=== PATIENT | male | born 1950 | race Caucasian/White ===

== ENCOUNTER 2020-02-09 05:08 | Emergency (ER) | payer OTHER ==
[~2020-02-09] VITALS: Ht 175.3 cm; Wt 56.7 kg
[2020-02-09] MEDS ORDERED: ASPI325 PO (05:14)
[2020-02-09] MEDS ORDERED: OMEP20ER PO (05:14)
[2020-02-09] MEDS ORDERED: Neurontin600 MG PO (05:15)
[2020-02-09] MEDS ORDERED: Tessalon200 MG (05:16)
[2020-02-09] MEDS ORDERED: ATOR20 PO (05:16)
[2020-02-09] MEDS ORDERED: Prinivil10 MG PO (05:16)
[2020-02-09 05:47] LABS: BASOPHILS ABSOLUTE AUTO 0.05 K/mm3 (0.00-0.23); BASOPHILS PERCENT AUTO 0 % (0-2); EOSINOPHILS ABSOLUTE AUTO 0.09 K/mm3 (0.00-0.68); EOSINOPHILS PERCENT AUTO 1 % (0-6); Hematocrit 44.6 % (37.0-53.0); Hemoglobin 14.6 g/dL (13.5-17.5); IMMATURE GRAN ABSOLUTE AUTO 0.09 K/mm3 (0.00-0.10); IMMATURE GRAN PERCENT AUTO 1 % (0-1); LYMPHOCYTES ABSOLUTE AUTO 1.46 K/mm3 (0.84-5.20); LYMPHOCYTES PERCENT AUTO 9 % (21-46); MONOCYTES ABSOLUTE AUTO 1.32 K/mm3 (0.16-1.47); MONOCYTES PERCENT AUTO 8 % (4-13); Mean Corpuscular HGB 29.7 pg (26.0-34.0); Mean Corpuscular HGB Conc 32.7 g/dL (31.5-36.5); Mean Corpuscular Volume 91 fL (80-100); Mean Platelet Volume 10.4 fL (9.1-12.4); NEUTROPHILS ABSOLUTE AUTO 13.94 K/mm3 (1.96-9.15); NEUTROPHILS PERCENT AUTO 82 % (41-73); Platelet Count 229 K/mm3 (150-400); RDW Coefficient Variation 14.6 % (11.7-14.2); RDW Standard Deviation 49.3 fL (35.1-46.3); Red Blood Cell Count 4.91 M/mm3 (4.30-5.90); White Blood Cell Count 16.95 K/mm3 (4.00-11.30)
[2020-02-09] MEDS ORDERED: AMOCLA875 PO (06:09)
[2020-02-09 06:15] LABS: Troponin I <0.015 ng/mL (0.000-0.040)
[2020-02-09 06:17] LABS: Alanine Aminotransfer (ALT/SGP 25 U/L (12-78); Albumin, Blood 3.7 g/dL (3.4-5.0); Alk Phos 97 U/L (50-136); Anion Gap 8 mmol/L (6-16); Aspartate Aminotrans (AST/SGOT 18 U/L (12-37); Bilirubin, Total 0.6 mg/dL (0.1-1.0); Blood Urea Nitrogen 26 mg/dL (8-24); Bun/Creatinine Ratio 25.7 (12.0-20.0); CO2, Blood 24 mmol/L (21-32); Calcium, Blood 9.7 mg/dL (8.5-10.1); Chloride, Blood 101 mmol/L (98-108); Creatinine, Blood 1.01 mg/dL (0.60-1.20); Globulin, Blood 3.7 g/dL (2.2-4.0); Glomerular Filtration Rate >60 (60-); Glucose, Blood 105 mg/dL (70-99); Potassium, Blood 4.2 mmol/L (3.5-5.5); Sodium, Blood 133 mmol/L (136-145); Total Protein, Blood 7.4 g/dL (6.4-8.2)
== END 2020-02-09 06:40 | disposition home or self-care (01) ==
LOC: ER 05:08
PROVIDERS: Emergency Medicine
DX: J18.9 Pneumonia, unspecified organism (principal); I10 Essential (primary) hypertension; Z79.899 Other long term (current) drug therapy; Z79.82 Long term (current) use of aspirin; F17.210 Nicotine dependence, cigarettes, uncomplicated
CPT/HCPCS: 71046; 80053; 83690; 84484; 85025; 93005; 93010; 96361; 96374; 96375; 99285-25; J2270; J2405; J7030

== ENCOUNTER 2020-08-18 10:39 | Inpatient (IN) | payer OTHER, MEDICARE ==
[~2020-08-18] VITALS: Ht 175.3 cm; Wt 52.2 kg
[~2020-08-18 10:39] MED LIST: AMOCLA875 PO; Tessalon200 MG
[2020-08-18 11:28] LABS: BASOPHILS ABSOLUTE AUTO 0.06 K/mm3 (0.00-0.23); BASOPHILS PERCENT AUTO 0 % (0-2); EOSINOPHILS PERCENT AUTO 0 % (0-6); Hematocrit 32.9 % (37.0-53.0); Hemoglobin 10.6 g/dL (13.5-17.5); IMMATURE GRAN ABSOLUTE AUTO 0.22 K/mm3 (0.00-0.10); IMMATURE GRAN PERCENT AUTO 1 % (0-1); LYMPHOCYTES ABSOLUTE AUTO 1.21 K/mm3 (0.84-5.20); LYMPHOCYTES PERCENT AUTO 6 % (21-46); MONOCYTES ABSOLUTE AUTO 1.22 K/mm3 (0.16-1.47); MONOCYTES PERCENT AUTO 6 % (4-13); Mean Corpuscular HGB 27.2 pg (26.0-34.0); Mean Corpuscular HGB Conc 32.2 g/dL (31.5-36.5); Mean Corpuscular Volume 85 fL (80-100); Mean Platelet Volume 8.8 fL (9.1-12.4); NEUTROPHILS ABSOLUTE AUTO 17.92 K/mm3 (1.96-9.15); NEUTROPHILS PERCENT AUTO 87 % (41-73); Platelet Count 468 K/mm3 (150-400); RDW Coefficient Variation 15.3 % (11.7-14.2); RDW Standard Deviation 46.6 fL (35.1-46.3); Red Blood Cell Count 3.89 M/mm3 (4.30-5.90); White Blood Cell Count 20.63 K/mm3 (4.00-11.30)
[2020-08-18 11:49] LABS: Alanine Aminotransfer (ALT/SGP 17 U/L (12-78); Albumin, Blood 1.9 g/dL (3.4-5.0); Albumin/Globulin Ratio 0.4 (0.8-1.8); Alk Phos 138 U/L (50-136); Anion Gap 7 mmol/L (6-16); Aspartate Aminotrans (AST/SGOT 13 U/L (12-37); Bilirubin, Total 0.4 mg/dL (0.1-1.0); Blood Urea Nitrogen 15 mg/dL (8-24); Bun/Creatinine Ratio 21.9 (12.0-20.0); CO2, Blood 28 mmol/L (21-32); Calcium, Blood 8.6 mg/dL (8.5-10.1); Chloride, Blood 95 mmol/L (98-108); Creatinine, Blood 0.68 mg/dL (0.60-1.20); Globulin, Blood 4.8 g/dL (2.2-4.0); Glomerular Filtration Rate >60 (60-); Glucose, Blood 125 mg/dL (70-99); Potassium, Blood 4.1 mmol/L (3.5-5.5); Sodium, Blood 130 mmol/L (136-145); Total Protein, Blood 6.7 g/dL (6.4-8.2); Troponin I <0.015 ng/mL (0.000-0.040)
[2020-08-18] MEDS ORDERED: ASPIR 8181 M1 PO (13:59)
[2020-08-18] MEDS ORDERED: OMEP20ER PO (14:01)
[2020-08-18] MEDS ORDERED: GABAPENTIN600 MG PO (14:03)
[2020-08-18] MEDS ORDERED: Prinivil10 MG PO (14:03)
[2020-08-18] MEDS ORDERED: ATOR40TA PO (14:04)
--- NOTE | 2020-08-18 16:29 | NUR ---
1550 RECEIVED PT TO RM 343 VIA W/C FROM ER. PT IS A&O, ABLE TO TX SELF TO BED. WEAK AND FRAIL LOOKING. ADMITTED FOR NECROTIZING PNM WITH SHARP PAIN TO RCW. DENIES SOB WITH ACTIVITY, JUST PAIN WITH COUGHING. PLACED ON 2L O2 VIA NC; NORMALLY ON RA. COARSE SOUNDING COUGH. PT INFORMED OF NEEDED SPUTUM CX. PT WITH MASS TO RLL; POSSIBLE PNM OR NEOPLASM. IVF'S AND ZOSYN GIVEN IN ER. NO ALLERGIES REPORTED. PT UP INDEPENDENTLY TO BTHRM AFTER ADMISSION. MEDICATED FOR SHARP PAIN TO R CHEST. PT ASSISTED WITH PHONE IN RM; CALLING. DENIED FURTHER NEEDS. CALL LT IN REACH. PULMONARY CONSULT CALLED IN ER.
[2020-08-19 05:04] LABS: BASOPHILS ABSOLUTE AUTO 0.05 K/mm3 (0.00-0.23); BASOPHILS PERCENT AUTO 0 % (0-2); EOSINOPHILS ABSOLUTE AUTO 0.04 K/mm3 (0.00-0.68); EOSINOPHILS PERCENT AUTO 0 % (0-6); Hematocrit 29.5 % (37.0-53.0); Hemoglobin 9.4 g/dL (13.5-17.5); IMMATURE GRAN ABSOLUTE AUTO 0.13 K/mm3 (0.00-0.10); IMMATURE GRAN PERCENT AUTO 1 % (0-1); LYMPHOCYTES ABSOLUTE AUTO 1.35 K/mm3 (0.84-5.20); LYMPHOCYTES PERCENT AUTO 7 % (21-46); MONOCYTES ABSOLUTE AUTO 1.31 K/mm3 (0.16-1.47); MONOCYTES PERCENT AUTO 7 % (4-13); Mean Corpuscular HGB 27.2 pg (26.0-34.0); Mean Corpuscular HGB Conc 31.9 g/dL (31.5-36.5); Mean Corpuscular Volume 86 fL (80-100); NEUTROPHILS ABSOLUTE AUTO 15.33 K/mm3 (1.96-9.15); NEUTROPHILS PERCENT AUTO 84 % (41-73); Platelet Count 409 K/mm3 (150-400); RDW Coefficient Variation 15.2 % (11.7-14.2); RDW Standard Deviation 47.4 fL (35.1-46.3); Red Blood Cell Count 3.45 M/mm3 (4.30-5.90); White Blood Cell Count 18.21 K/mm3 (4.00-11.30)
[2020-08-19 05:20] LABS: International Normalized Ratio 1.17; Prothrombin Time Results 12.4 Sec (9.7-11.5)
[2020-08-19 05:26] LABS: Alanine Aminotransfer (ALT/SGP 11 U/L (12-78); Albumin, Blood 1.6 g/dL (3.4-5.0); Albumin/Globulin Ratio 0.4 (0.8-1.8); Alk Phos 109 U/L (50-136); Anion Gap 7 mmol/L (6-16); Aspartate Aminotrans (AST/SGOT 10 U/L (12-37); Bilirubin, Total 0.5 mg/dL (0.1-1.0); Blood Urea Nitrogen 12 mg/dL (8-24); CO2, Blood 26 mmol/L (21-32); Chloride, Blood 100 mmol/L (98-108); Globulin, Blood 4.1 g/dL (2.2-4.0); Glomerular Filtration Rate >60 (60-); Glucose, Blood 89 mg/dL (70-99); Magnesium, Blood 1.6 mg/dL (1.6-2.4); Sodium, Blood 133 mmol/L (136-145); Total Protein, Blood 5.7 g/dL (6.4-8.2)
--- NOTE | 2020-08-19 06:21 | NUR ---
SHIFT SUMMARY PATIENT ALERT AND ORIENTED, ALTHOUGH OCCASIONALLY FORGETFUL AND IMPULSIVE. HE IS WEAK AND DUE TO HAVING SCD'S, IV TUBING, AND O2 TUBING, PATIENT'S BED ALARM HAS BEEN TURNED ON TO PREVENT FALLS. PATIENT MEDICATED ONCE PER EMAR FOR COUGH. HE WAS ABLE TO SLEEP WELL OVERNIGHT. IV PATENT AND INFUSING. BED IN LOWEST POSITION WITH WHEELS LOCKED AND ALARM ON. CALL LIGHT WITHIN REACH. REPORT GIVEN TO ONCOMING RN.
--- NOTE | 2020-08-19 17:38 | NUR ---
SHIFT SUMMARY PT AWAKE AT START OF SHIFT WATCHING TV. BED ALARM ON FOR SAFETY WITH SCD'S AND IV PUMP/LINES. PT FORGETFUL DURING THE NIGHT. PT REPORTED FEELING BETTER THIS AM THAN WHEN ADMITTED. DR NGO IN TO SEE PT THIS AM, EXPLAINING PLAN OF CARE. PT REPORTED PAIN TO RCW, REQUESTING PAIN MEDICATION, THOUGH PAIN MUCH IMPROVED FROM ADMISSION. IV'S SL, EXCEPT FOR SCHEDULED IV ABX. USES URINAL IN BED MOST OF THE TIME, UP TO BTHRM AT TIMES; SBA ONLY ONCE PT UP AND DISCONNECTED FROM LINES. PT HAS BEEN PLEASANT AND CO-OP. CALL LT IN REACH.
--- NOTE | 2020-08-20 04:32 | NUR ---
Patient rested well overnight after receiving phenergan with codiene for his hacking cough. It was productive of large amounts of thick white sputum and patient would be in considerable pain in the lower anterior ribs and area of manubrium when he would cough. SCD's were removed as patient is in and out of bed at night to bathroom and this increased his risk for injury. Lung sounds are coarse throughout (right greater than Left)
--- NOTE | 2020-08-20 11:14 | NUR ---
AND HAVE ROUNDED. HE WILL HAVE A REPEAT CXR AND LABS TOMORROW AM. HE IS UP WITH SBA TO THE BATHROOM. HE HAS BEEN MEDICATED WITH TRAMADOL FOR HIS RCW PAIN. HE CONTINUES TO HAVE A PRODUCTIVE COUGH OF WHITE SPUTUM. O2 IS AT 1.5L.
--- NOTE | 2020-08-20 13:44 | NUR ---
HE HAD A SMALL LEAK AT HIS LAC IV SITE. IT WAS REMOVED AND A NEW IV PLACED FOR FUTURE ANTIBIOTIC DOSES. HE SAID THE TRAMADOL THIS MORNING DECREASED HIS PAIN SOME. VSS. SPUTUM AND BLD CULTURES NEGATIVE. AFEBRILE. STILL CONTINUES TO EXPECTORATE WHITE STICKY SECRETIONS.
[2020-08-20 16:57] LABS: Percent Saturation 13.1 % (20.0-50.0)
--- NOTE | 2020-08-20 18:06 | NUR ---
HE RECEIVED TRAMADOL X2 FOR PAIN IN HIS RCW. HE DOESN'T COMPLAIN MUCH SO WE NEED TO OFFER. HE IS STOIC. NEW SL STARTED TODAY BOTH HIS OLD IV SITES LEAKED. AFEBRILE AND STABLE VS, THOUGH ON ROOM AIR HE ONLY SATS 90%. UP AD FLETCHER TO THE BATHROOM. ORDERED A REPEAT CXR FOR TOMORROW MORNING. HE CONTINUES TO EXPECTORATE SPUTUM, USUALLY WHITE BUT MORE RECENTLY YELLOW.
[2020-08-21 05:54] LABS: BASOPHILS ABSOLUTE AUTO 0.04 K/mm3 (0.00-0.23); BASOPHILS PERCENT AUTO 0 % (0-2); EOSINOPHILS ABSOLUTE AUTO 0.08 K/mm3 (0.00-0.68); EOSINOPHILS PERCENT AUTO 1 % (0-6); Hematocrit 30.7 % (37.0-53.0); Hemoglobin 9.8 g/dL (13.5-17.5); IMMATURE GRAN ABSOLUTE AUTO 0.09 K/mm3 (0.00-0.10); IMMATURE GRAN PERCENT AUTO 1 % (0-1); LYMPHOCYTES ABSOLUTE AUTO 1.23 K/mm3 (0.84-5.20); LYMPHOCYTES PERCENT AUTO 11 % (21-46); MONOCYTES ABSOLUTE AUTO 0.78 K/mm3 (0.16-1.47); MONOCYTES PERCENT AUTO 7 % (4-13); Mean Corpuscular HGB 27.3 pg (26.0-34.0); Mean Corpuscular HGB Conc 31.9 g/dL (31.5-36.5); Mean Corpuscular Volume 86 fL (80-100); Mean Platelet Volume 9.1 fL (9.1-12.4); NEUTROPHILS ABSOLUTE AUTO 9.09 K/mm3 (1.96-9.15); NEUTROPHILS PERCENT AUTO 80 % (41-73); Platelet Count 428 K/mm3 (150-400); RDW Coefficient Variation 15.2 % (11.7-14.2); RDW Standard Deviation 46.8 fL (35.1-46.3); Red Blood Cell Count 3.59 M/mm3 (4.30-5.90); White Blood Cell Count 11.31 K/mm3 (4.00-11.30)
--- NOTE | 2020-08-21 06:37 | NUR ---
SHIFT SUMMARY: PT IS ALERT AND ORIENTED. PT IS CALM AND COOPERTATIVE WITH CARE. PT CALLS APPROPRIATELY. PT IS INDEPENDENT IN THE ROOM. PT DENIES PAIN, NAUSEA, VOMITING, AND SOB. PT SLEPT MUCH OF THE NIGHT WHEN NOT DISTURBED. NO ACUTE CHANGES OR COMPLICATIONS THIS SHIFT. BED IN LOW POSITION, CALL LIGHT WITHIN REACH. WILL CONTINUE TO MONITOR.
--- NOTE | 2020-08-21 18:23 | NUR ---
HE SAYS HE'S A LITTLE DIZZY WHEN HE WALKS TO THE BATHROOM. HE FEELS PRETTY NORMAL OTHERWISE. HIS RCW PAIN CONTINUES. HE HAS TAKEN TRAMADOL X3 TODAY WITH GOOD RESULTS EACH TIME. HE IS CACHEXIC AND HAS A SMALL APPETITE. HE ALSO DOES NOT LIKE OUR FOOD. ORDERED ANOTHER SPUTUM TEST. I JUST SENT IT TO THE LAB. HIS SPUTUM LATE MORNING WAS YELLOW NOW IT IS MORE AMEZCUA COLOR. HE HAD 1 VISITOR THIS EVENING. IV LEVYN CONTINUES. VSS. HE SAYS HE HAD 2 LOOSE STOOLS TODAY SEVERAL HRS APART. NO OTHER CHANGES.
--- NOTE | 2020-08-22 04:15 | NUR ---
SHOE STICKS REPAIRER SUMMARY A/OX4, APPEARED TO SLEEP T/O THE NIGHT. C/O PAIN IN R.UPPER CHEST AREA THAT WORSENS WITH COUGH. MEDICATED PER EMAR. CURRENTLY ON 2 L AT REST. DESATS NOTED WHILE AMBULATING, ENCOURAGED PT TO KEEP NC ON WHILE USING RESTROOM. VSS. NO ACUTE CHANGES NOTED AT THIS TIME. BED IN LOWEST POSITION WITH CALL LIGHT IN REACH. WILL CONTINUE TO MONITOR AND REPORT TO ONCOMING RN.
[2020-08-22] MEDS ORDERED: ACET325 PO (15:29)
[2020-08-22] MEDS ORDERED: GUAI600T33 PO (15:32)
[2020-08-22] MEDS ORDERED: PROBIOTIC1 EA13 PO (15:34)
[2020-08-22] MEDS ORDERED: AMOCLA875 PO (15:35)
[2020-08-22] MEDS ORDERED: Q-Tussin100 MG/5 M PO (15:38)
--- NOTE | 2020-08-22 16:01 | NUR ---
PT DISCHARGED VIA WHEELCHAIR AND BELONGINGS AT SIDE. PT MADE NO C/O PAIN OR SOB UPON DC. PT LINE DC'S AND WNL. PT EDUCATED ON FU APPOINTMENTS NEEDED AND MEDICATION MANAGMENTS.
== END 2020-08-22 16:03 | disposition home or self-care (01) | DRG 871 ==
LOC: ER 10:39 → MEDS 13:49
PROVIDERS: Internal Medicine; Internal Medicine Critical Care Medicine; Nurse Practitioner Acute Care; Physician Assistant; ADMIT Internal Medicine
DX: A41.9 Sepsis, unspecified organism (principal); J85.0 Gangrene and necrosis of lung; J96.01 Acute respiratory failure with hypoxia; E87.1 Hypo-osmolality and hyponatremia; I10 Essential (primary) hypertension; Z87.891 Personal history of nicotine dependence; K21.9 Gastro-esophageal reflux disease without esophagitis; Z79.82 Long term (current) use of aspirin; I73.9 Peripheral vascular disease, unspecified; K44.9 Diaphragmatic hernia without obstruction or gangrene; D63.8 Anemia in other chronic diseases classified elsewhere; J44.9 Chronic obstructive pulmonary disease, unspecified; Z51.5 Encounter for palliative care
CPT/HCPCS: 36415; 71046; 71260; 80053; 82607; 82728; 82746; 83540; 83550; 83605; 83735; 84484; 85025; 85610; 87040; 87070; 87205; 93005; 93010; 94640; 94760; 94761; 96365-59; 96375-59; 99285-25; A9270; A9270-GY; J2270; J2405; J2543; J7030; J7050; Q9967

== ENCOUNTER 2021-01-05 12:25 | Day surgery (SDC) | payer OTHER ==
[~2021-01-05] VITALS: Ht 165.1 cm; Wt 54.2 kg
[~2021-01-05 12:25] MED LIST changes: +ACET325 PO; +ASPIR 8181 M1 PO; +ATOR40TA PO; +GABAPENTIN600 MG PO; +GUAI600T33 PO; +OMEP20ER PO; +PROBIOTIC1 EA13 PO; +Prinivil10 MG PO; +Q-Tussin100 MG/5 M PO
--- NOTE | 2021-01-05 13:05 | NUR ---
01/05/21 1305 Rachana Ureña ONE ATTEMPT BY MA IN RH VALVE SECOND ATTEMPT BY MA IN RW MISSED THIRD ATTEMPT BY MA IN RH MISSED FOURTH SUCCESSFUL BY MA IN RAC PT TOW
== END 2021-01-05 14:45 | disposition home or self-care (01) ==
LOC: ORSCSDS 12:25
PROVIDERS: Student in an Organized Health Care Education/Training Program
PROC: 0DB58ZX Excision of Esophagus, Via Natural or Artificial Opening Endoscopic, Diagnostic (ICD-10-PCS; principal; 2021-01-05 15:15)
DX: R93.3 Abnormal findings on diagnostic imaging of other parts of digestive tract (principal); K44.9 Diaphragmatic hernia without obstruction or gangrene; K22.70 Barrett's esophagus without dysplasia; C15.9 Malignant neoplasm of esophagus, unspecified; J44.9 Chronic obstructive pulmonary disease, unspecified; I10 Essential (primary) hypertension; Z87.891 Personal history of nicotine dependence; Z79.82 Long term (current) use of aspirin; Z79.899 Other long term (current) drug therapy
CPT/HCPCS: 88305; 88360; J2704

== ENCOUNTER 2021-06-19 08:18 | Day surgery (SDC) | payer OTHER ==
[~2021-06-19] VITALS: Ht 165.1 cm; Wt 51.3 kg
== END 2021-06-19 10:13 | disposition home or self-care (01) ==
LOC: ORSCSDS 08:18
PROVIDERS: Student in an Organized Health Care Education/Training Program
PROC: 0DB58ZX Excision of Esophagus, Via Natural or Artificial Opening Endoscopic, Diagnostic (ICD-10-PCS; principal; 2021-06-19 09:45)
DX: C15.8 Malignant neoplasm of overlapping sites of esophagus (principal); K22.70 Barrett's esophagus without dysplasia; R13.14 Dysphagia, pharyngoesophageal phase; K44.9 Diaphragmatic hernia without obstruction or gangrene; J44.9 Chronic obstructive pulmonary disease, unspecified; I10 Essential (primary) hypertension; E78.5 Hyperlipidemia, unspecified; Z79.82 Long term (current) use of aspirin; Z87.891 Personal history of nicotine dependence; Z79.899 Other long term (current) drug therapy
CPT/HCPCS: 88305; 88312; J2704; J7120

== ENCOUNTER 2021-12-01 08:14 | Day surgery (SDC) | payer OTHER ==
[~2021-12-01] VITALS: Ht 165.1 cm; Wt 50.0 kg
[~2021-12-01 08:14] MED LIST changes: +DECADRON4 M1; +Norco 10-325 T1 EACH; +ONDA4 PO
--- NOTE | 2021-12-01 11:43 | NUR ---
SIGNED OFF TO NICOLAS RODRÍGUEZ. PATIENT SITTING UP IN BED DRINKING PO INTAKE; TOLERATING WELL.
--- NOTE | 2021-12-01 11:55 | NUR ---
RECEIVED REPORT FROM ALCIDES HERNANDEZ RN. PT AXOX4, RESTING COMFORTABLY IN BED, TOLERATING PO FLUIDS. PATIENT HAS TWO INCISION SITES, ONE ON RIGHT NECK AND ONE ON RIGHT CHEST. BOTH COVERED WITH GAUZE THAT IS CLEAN, DRY AND INTACT, NO INFLAMMATION, SWELLING OR DRAINAGE NOTED.
--- NOTE | 2021-12-01 12:19 | NUR ---
PT'S TWO INCISION SITES ON R NECK AND R CHEST ARE STILL COVERED WITH GAUZE THAT IS CLEAN, DRY AND INTACT. NO SWELLING, INFLAMMATION, DRAINAGE NOTED.
--- NOTE | 2021-12-01 12:22 | NUR ---
Discharge instructions reviewed with patient. Patient verbalizes understanding. Copy given to patient to take home. Dressings to procedure site clean, dry, intact with no visible drainage, swelling, erythema or bruising noted. Patient States Post-Procedure ride home has been arranged. Discharged via wheelchair to private car for ride home. ALL BELONGINGS RETURNED TO PATIENT THAT HE CAME TO STEPDOWN UNIT WITH.
== END 2021-12-01 23:09 | disposition home or self-care (01) ==
LOC: ORSCMMR 08:14 → ORD 10:30 → ORSCMMR 23:09
PROVIDERS: Surgery
PROC: B543ZZA Ultrasonography of Right Jugular Veins, Guidance (ICD-10-PCS; principal; 2021-12-01 09:45)
PROC: 05HM33Z Insertion of Infusion Device into Right Internal Jugular Vein, Percutaneous Approach (ICD-10-PCS; principal; 2021-12-01 09:45)
DX: C15.8 Malignant neoplasm of overlapping sites of esophagus (principal); I10 Essential (primary) hypertension; J44.9 Chronic obstructive pulmonary disease, unspecified; F17.210 Nicotine dependence, cigarettes, uncomplicated; Z86.73 Personal history of transient ischemic attack (TIA), and cerebral infarction without residual deficits; I27.20 Pulmonary hypertension, unspecified; Z79.899 Other long term (current) drug therapy; Z79.82 Long term (current) use of aspirin
CPT/HCPCS: 77001; A9270; C1788; J0690; J1100; J1642; J1885; J2250; J2370; J2405; J2704; J3010; J7120

== ENCOUNTER 2022-05-15 05:44 | Emergency (ER) | payer OTHER ==
[~2022-05-15] VITALS: Ht 175.3 cm; Wt 54.4 kg
== END 2022-05-15 12:19 | disposition home or self-care (01) ==
LOC: ER 05:44
DX: R45.1 Restlessness and agitation (principal); I10 Essential (primary) hypertension; J44.9 Chronic obstructive pulmonary disease, unspecified; F17.200 Nicotine dependence, unspecified, uncomplicated; Z51.5 Encounter for palliative care; Z79.899 Other long term (current) drug therapy; Z79.82 Long term (current) use of aspirin
CPT/HCPCS: 99284